=== PATIENT | female | born 1955 | race Caucasian/White ===

== ENCOUNTER → 2016-09-13 | Outpatient (CLI) | payer OTHER | LOC: FIMAGING 14:55 | PROVIDERS: ATTEND Internal Medicine | DX: Z12.31 Encounter for screening mammogram for malignant neoplasm of breast (principal); Z80.3 Family history of malignant neoplasm of breast | CPT/HCPCS: G0202 ==

== ENCOUNTER → 2016-09-24 | Outpatient (CLI) | payer OTHER | LOC: FIMAGING 14:53 | PROVIDERS: ATTEND Internal Medicine | DX: R92.0 Mammographic microcalcification found on diagnostic imaging of breast (principal) | CPT/HCPCS: G0206 ==

== ENCOUNTER 2016-09-27 09:19 | Day surgery (SDC) | payer OTHER ==
[2016-09-27] MEDS ORDERED: LR 1,000 ML IV ONE (09:56)
[2016-09-27] MEDS ORDERED: LIDOCAINE 1% 2 ML INJ ID PRN (09:56)
--- NOTE | 2016-09-27 10:07 | PDGENHP ---
History & Physical Chief Complaint: colon cancer screening History of Present Illness: colon screen Pertinent Past, Social, Family History: reviewed Relevant Physical Exam: nad Cardiorespiratory Assessment: RRR,ctab
--- NOTE | 2016-09-27 10:31 | PDANEPAE ---
ANE History of Present Illness screening ANE Past Medical History - Cardiovascular History Hx Hypertension: No Hx Arrhythmias: No Hx Chest Pain: No Hx Coronary Artery / Peripheral Vascular Disease: No Hx CHF / Valvular Disease: No Hx Palpitations: No - Pulmonary History Hx COPD: No Hx Asthma/Reactive Airway Disease: No Hx Recent Upper Respiratory Infection: No Hx Oxygen in Use at Home: No Hx Sleep Apnea: Yes - Neurologic History Hx Cerebrovascular Accident: No Hx Seizures: No Hx Dementia: No - Endocrine History Hx Diabetes: No - Renal History Hx Renal Disorders: No - Liver History Hx Hepatic Disorders: No - Cancer History Hx Cancer: No - Surgical History Prior Surgeries: C3-4 injection. Breast biopsy. lumpectomy ANE Review of Systems Review of systems is: negative - Exercise capacity Exercise capacity: >=4 METS ANE Patient History - Allergies Allergies/Adverse Reactions: terbutaline Allergy (Severe, Verified 09/27/16 10:13) Anaphylaxis adhesives Allergy (Mild, Uncoded 03/26/12 11:30) skin breakdown - Home Medications Home Medications: Claritin 09/27/16 [Last Taken 09/26/16 20:00] Herbals/Supplements -Info Only 09/27/16 [Last Taken 09/25/16 20:00] - NPO status NPO Status: no food or drink >8 hours NPO Since - Liquids (Date): 09/27/16 NPO Since - Liquids (Time): 08:15 NPO Since - Solids (Date): 09/26/16 NPO Since - Solids (Time): 09:00 - Anes Hx Anes Hx: post operative nausea - Smoking Hx Smoking Status: Never smoked - Alcohol Use Alcohol Use: Rarely - Family Anes Hx Family Anes Hx: none Family Hx Anesthesia Complications: mother gets very nauseaus ANE Labs/Vital Signs - Vital Signs Blood Pressure: 111/74 Heart Rate: 71 Respiratory Rate: 16 O2 Sat (%): 95 Height: 167.64 cm Weight: 74.843 kg ANE Physical Exam - Airway Neck exam: FROM Mallampati Score: Class 2 Mouth exam: normal dental/mouth exam - Pulmonary Pulmonary: no respiratory distress - Cardiovascular Cardiovascular: regular rate and rhythym - ASA Status ASA Status: II ANE Anesthesia Plan Anesthesia Plan: GA with mask
[2016-09-27] MEDS ORDERED: LIDOCAINE 2% 5 ML SDV ONE (10:32)
[2016-09-27] MEDS ORDERED: PROPOFOL/EMULSION 500 MG/50 ML BOTTLE IV ONE (10:32)
[2016-09-27] MEDS ORDERED: ALBUTEROL 3 ML DEYVIAL IH PRN (10:46)
[2016-09-27] MEDS ORDERED: NALOXONE HCL 0.4 MG/ML INJ IVP PRN (10:46)
[2016-09-27] MEDS ORDERED: ONDANSETRON 4 MG/2 ML VIAL IVP PRN (10:46)
[2016-09-27] MEDS ORDERED: ACETAMINOPHEN 500 MG TAB PO PRN (10:46)
[2016-09-27 11:22] VITALS: PULSE 73; TEMP 97.7
[2016-09-27] MEDS ORDERED: ACETAMINOPHEN 500 MG TAB ONE (11:33)
[2016-09-27 11:51] VITALS: RESP 14
[2016-09-27 12:03] VITALS: BP 135/71; O2SAT 100
--- NOTE | 2016-09-27 18:14 | GPN ---
[f rep st] PROCEDURE NOTE DATE OF PROCEDURE: 09/27/2016 PROCEDURE: Colonoscopy with polypectomy. INDICATION: Average risk colon cancer screening. CONSENT: Informed consent was obtained from the patient after an explanation of risks, benefits, an d alternatives to the procedure. MEDICATIONS GIVEN: Per Anesthesia. DESCRIPTION OF EXAM: After adequate sedation was achieved, the colonoscope was advanced through the anal orifice and as far as the cecum under direct vision. The views were good. Prep quality was g ood. Patient tolerance was good. Photographs were taken of the appendiceal orifice, cecum, ileocec al valve, and retroflexed view in the rectum. COMPLICATIONS: None. ESTIMATED BLOOD LOSS: None. FINDINGS: 1. Normal-appearing colonic mucosa throughout, and normal-appearing ileal mucosa protruding through the ileocecal valve. 2. A 2 mm midtransverse colon polyp was removed with cold biopsy forceps and retrieved. 3. A 6 mm flat distal transverse colon polyp was removed in 1 piece with cold snare and pulled into the scope. It was not retrieved in the trap and probably broke up. 4. Rare scattered sigmoid diverticulosis. 5. Medium internal hemorrhoids. IMPRESSION: Two polyps removed, although 1 was not retrieved. RECOMMENDATIONS: 1. Tentatively recommend repeat colonoscopy in 5 years for finding of 2 polyps, 1 of which was not retrieved. Will await pathology results to determine if this interval needs to be changed. 2. Resume regular medications. 3. Resume regular diet. 4. Discharge home. /[id number]/MODL
== END 2016-09-27 12:15 | disposition home or self-care (01) ==
LOC: FSGY 09:19
PROVIDERS: ATTEND Internal Medicine
PROC: 0DBE8ZX Excision of Large Intestine, Via Natural or Artificial Opening Endoscopic, Diagnostic (ICD-10-PCS; principal; 2016-09-27 10:45)
DX: Z12.11 Encounter for screening for malignant neoplasm of colon (principal); D12.3 Benign neoplasm of transverse colon; K57.30 Diverticulosis of large intestine without perforation or abscess without bleeding; K64.8 Other hemorrhoids
CPT/HCPCS: J2704

== ENCOUNTER → 2017-08-15 | Outpatient (CLI) | payer OTHER | LOC: FIMAGING 14:10 | PROVIDERS: ATTEND Internal Medicine | DX: N63.11 Unspecified lump in the right breast, upper outer quadrant (principal) ==

== ENCOUNTER → 2017-10-02 | Outpatient (CLI) | payer OTHER ==
[~2017-10-02] MED LIST: GADOBUTROL 10 ML VIAL IVP ONE
== END ==
LOC: FIMAGING 09:14
PROVIDERS: ATTEND Surgery
DX: C50.411 Malignant neoplasm of upper-outer quadrant of right female breast (principal)
CPT/HCPCS: 0159T; 77059; A9585; C8908

== ENCOUNTER → 2017-10-17 | Outpatient (CLI) | payer OTHER | LOC: FIMAGING 13:42 | PROVIDERS: ATTEND Surgery | DX: N63.11 Unspecified lump in the right breast, upper outer quadrant (principal); C50.411 Malignant neoplasm of upper-outer quadrant of right female breast ==

== ENCOUNTER 2017-11-01 10:26 | Day surgery (SDC) | payer OTHER ==
--- NOTE | 2017-10-30 10:00 | GHP ---
DATE OF ADMISSION: 11/01/2017 HISTORY OF PRESENT ILLNESS: The patient is a 62-year-old female who was recently found to have a right breast lump that was subsequently biopsied. Her pathology revealed an ER/MA positive, Gume grade 2, invasive ductal carcinoma, and HER2 positive. She does have a family history of pancreatic and prostate cancer. On ultrasound, the lesion is just under 2 cm, but there are surrounding findings on MRI that suggest that the lump could be up to 4.5 cm in size. In addition, 2 more lesions have been identified in the left breast on MRI. When she was in our office 1 month ago, we discussed surgical options. One option would be lumpectomy with radiation. The 2nd option would be bilateral mastectomies. After discussing with her oncologist, Dr. Ilda Santana, the patient has chosen to move forward with chemotherapy 1st and will undergo bilateral mastectomies at some point in the future. PAST MEDICAL HISTORY: Endometriosis, fatigue, fibrocystic disease of the breast , hyperlipidemia, infertility, Meniere disease, vertigo. PAST SURGICAL HISTORY: Appendectomy, breast biopsy, , lumpectomies of both breasts, neck surgery. MEDICATION LIST: Diazepam 5 mg oral tablet as needed. ALLERGIES: No known allergies. FAMILY HISTORY: Coronary artery disease, breast cancer, pancreatic cancer, hypertension, emphysema, myocardial infarction. SOCIAL HISTORY: The patient is a nonsmoker, occasionally uses alcohol and is with 2 children. REVIEW OF SYSTEMS: Ten-point review of systems was performed and is negative, aside from what is in the HPI. PHYSICAL EXAMINATION: GENERAL: Pleasant, well-nourished, well-groomed woman. HEENT: Normocephalic, atraumatic. No gross hearing deficit. Mucous membranes moist. HEENT: Eyes: Pupils are equal and round. No scleral icterus. CARDIAC : Regular rate and rhythm, no lower extremity edema. LUNGS: Clear to auscultation bilaterally. No increased work of breathing. BREASTS: Exam performed in the upright and supine position. Palpable right breast mass. No cervical, supraclavicular, or axillary lymphadenopathy. MUSCULOSKELETAL: Moves all extremities equally. SKIN: Warm and dry, no rashes. PSYCHIATRIC: Appropriate mood and affect. IMPRESSION AND PLAN: This is a 62-year-old female with newly diagnosed grade II invasive ductal carcinoma of the right breast, who was found to have 2 additional lesions in the contralateral breast on MRI. She, along with her oncologist, has chosen to pursue chemotherapy prior to surgery. She will undergo surgery to have a port placed. In the future, she will undergo bilateral mastectomies. We have discussed all risks and options of surgery. Risks include but are not limited to infection, bleeding, pneumothorax, heart attack, and . Patient understands and wishes to proceed with port placement. /[id number]/MODL MTDD
[2017-11-01] MEDS ORDERED: ceFAZolin 2 GM/DEXTROSE 100 ML IV ONE (10:46)
[2017-11-01] MEDS ORDERED: LR 1,000 ML IV ONE (10:50)
[2017-11-01] MEDS ORDERED: ONDANSETRON 4 MG/2 ML VIAL IVP PRN (12:28)
[2017-11-01] MEDS ORDERED: ALBUTEROL 3 ML DEYVIAL IH PRN (12:28)
[2017-11-01] MEDS ORDERED: fentaNYL 100 MCG/2 ML INJ IVP PRN (12:28)
[2017-11-01] MEDS ORDERED: DEXAMETHASONE 4 MG/ML VIAL IVP PRN (12:28)
[2017-11-01] MEDS ORDERED: ACETAMINOPHEN 500 MG TAB PO PRN (12:28)
[2017-11-01] MEDS ORDERED: NALOXONE HCL 0.4 MG/ML INJ IVP PRN (12:28)
[2017-11-01] MEDS ORDERED: MIDAZOLAM 2 MG/2 ML VIAL IVP ONE (12:29)
--- NOTE | 2017-11-01 12:31 | PDANEPAE ---
ANE History of Present Illness Venous Port ANE Past Medical History - Cardiovascular History Hx Hypertension: No Hx Arrhythmias: No Hx Chest Pain: No Hx Coronary Artery / Peripheral Vascular Disease: No Hx CHF / Valvular Disease: No Hx Palpitations: No - Pulmonary History Hx COPD: No Hx Asthma/Reactive Airway Disease: No Hx Recent Upper Respiratory Infection: No Hx Oxygen in Use at Home: No Hx Sleep Apnea: Yes Sleep Apnea Screening Result - Last Documented: Positive Pulmonary History Comment: HITESH positive - wears Cpap - Neurologic History Hx Cerebrovascular Accident: No Hx Seizures: No Hx Dementia: No - Endocrine History Hx Diabetes: No - Renal History Hx Renal Disorders: No - Liver History Hx Hepatic Disorders: No - Neurological & Psychiatric Hx Hx Neurological and Psychiatric Disorders: No - Cancer History Hx Cancer: Yes Cancer History Comment: right breast cancer - Congenital Disorder History Hx Congenital Disorders: No - GI History Hx Gastrointestinal Disorders: No - Other Health History Other Health History: right foot fracture - wearing a boot. meniere's disease. wears glasses - Chronic Pain History Chronic Pain: No - Surgical History Prior Surgeries: colonoscopy 09/2016. C3-4 injection. Breast biopsy. lumpectomy x2. appy. endometriosis surgery ANE Review of Systems Review of Systems: - Exercise capacity METS (RN): 4 METS ANE Patient History - Allergies Allergies/Adverse Reactions: terbutaline Allergy (Verified 10/31/17 10:48) Anaphylaxis adhesives Allergy (Uncoded 10/31/17 10:48) Rash - Home Medications Home Medications: Claritin 09/27/16 [Last Taken 10/30/17] Herbals/Supplements -Info Only 09/27/16 [Last Taken 10/30/17] DIAZEPAM PRN 10/31/17 [Last Taken 3 Months Ago ~08/01/17] - NPO status NPO Since - Liquids (Date): 11/01/17 NPO Since - Liquids (Time): 09:00 NPO Since - Solids (Date): 10/31/17 NPO Since - Solids (Time): 21:30 - Smoking Hx Smoking Status: Never smoked - Family Anes Hx Family Hx Anesthesia Complications: mother gets very nauseaus ANE Labs/Vital Signs - Vital Signs Blood Pressure: 116/68 Heart Rate: 62 Respiratory Rate: 18 O2 Sat (%): 97 Height: 170.18 cm Weight: 71.668 kg ANE Physical Exam - Airway Neck exam: FROM Mallampati Score: Class 2 Mouth exam: normal dental/mouth exam - Pulmonary Pulmonary: clear to auscultation - Cardiovascular Cardiovascular: regular rate and rhythym - ASA Status ASA Status: II ANE Anesthesia Plan Anesthesia Plan: GA with mask
[2017-11-01] MEDS ORDERED: BUPIVACAINE 0.5% 30 ML SDV ONE (12:45)
[2017-11-01] MEDS ORDERED: PROPOFOL/EMULSION 500 MG/50 ML BOTTLE IV ONE (12:50)
[2017-11-01] MEDS ORDERED: LIDOCAINE 1% 300 MG/30 ML SDV ONE (12:52)
[2017-11-01] MEDS ORDERED: NA BICARBONATE 50 MEQ/50 ML VIAL ONE (12:52)
[2017-11-01] MEDS ORDERED: LIDOCAINE 2% 2 ML INJ ONE ×2 (12:53→12:54)
[2017-11-01] MEDS ORDERED: fentaNYL 100 MCG/2 ML INJ ONE ×2 (12:58→15:58)
--- NOTE | 2017-11-01 13:03 | PDHPUP ---
History & Physical Update H&P update statement: This history and physical update is based on an assessment of the patient which was completed after admission or registration (within 24 hours), but prior to the surgery/procedure. H&P update: H&P reviewed & patient examined, no change in patient's condition since H&P completed
[2017-11-01] MEDS ORDERED: DEXAMETHASONE 4 MG/ML VIAL ONE (13:23)
[2017-11-01] MEDS ORDERED: ONDANSETRON 4 MG/2 ML VIAL ONE (13:23)
[2017-11-01] MEDS ORDERED: BACITRACIN ZINC 14.2 GM OINTTUBE TP ONE (13:36)
--- NOTE | 2017-11-01 13:52 | POSTANESTH ---
Post Anesthetic Evaluation Cardiovascular Status: Normal, Stable Respiratory Status: Normal, Stable Level of Consciousness/Mental Status: Can Participate in Eval, Alert and Oriented Pain Control: Adequate, Prn Tx Ordered Nausea/Vomiting Control: Adequate, Prn Tx Ordered Complications Possibly Related to Anesthesia: None Noted
[2017-11-01] MEDS ORDERED: ACETAMINOPHEN 500 MG TAB ONE (13:57)
--- NOTE | 2017-11-01 16:59 | POSTOPPROG ---
Post Op Note Date of Operation: 11/01/17 Surgeon: Brian España Anesthesiologist: CALVIN Anesthesia: IV Sedation Pre-op Diagnosis: BREAST CANCER Post-op Diagnosis: SAME Indication: CHEMO ACCESS Procedure: LEFT SUBCLAVIAN PORT WITH FLOURO Findings: GOOD POSITION AND FLOW Inf/Abcess present in the surg proc area at time of surgery?: No Depth: Deep Incisional (Fascial) EBL: Minimal Complications: 0
[2017-11-01 17:10] VITALS: BP 127/72
--- NOTE | 2017-11-03 15:57 | GOP ---
DATE OF OPERATION: SURGEON: Brian España MD PREOPERATIVE DIAGNOSIS: Breast cancer. POSTOPERATIVE DIAGNOSIS: Breast cancer. PROCEDURE PERFORMED: Left subclavian port placement with fluoroscopic guidance. FINDINGS: The patient was found to have good flow and good position of the catheter. DESCRIPTION OF PROCEDURE: The patient was taken to the operating room where she received IV sedation and monitored anesthesia care by Dr. Henderson. She was placed in the supine position, and prepped a nd draped in the usual sterile fashion. She was then placed in Trendelenburg. Using 1% Xylocaine lo dorinda infiltration, a single stick was made in the left subclavian vein. Guidewire was introduced. Po sition was confirmed with fluoroscopy. A subcu pocket was made in the 2nd intercostal space. At mana t point, the patient had been marked preoperatively for the positioning. Port tubing was passed from that pocket to the subclavian insertion site, trimmed to the appropriate length using fluoroscopic gu idance, and introduced through the introducer sheath and dilator system. Port was secured to the fas oliva with 3-0 Vicryl. Pocket was closed with 3-0 Vicryl for the subcu and a 4-0 Prolene subcuticular stitch for the skin. The entrance site was closed with Prolene mattress suture. All wounds were inf iltrated with 0.5% Marcaine. She tolerated the procedure well. She was taken to the recovery room i n good condition. There were no complications. /[id number]/MODL
== END 2017-11-01 17:16 | disposition home or self-care (01) ==
LOC: FSGY 10:26
PROVIDERS: ATTEND Surgery
PROC: 0JH60XZ Insertion of Tunneled Vascular Access Device into Chest Subcutaneous Tissue and Fascia, Open Approach (ICD-10-PCS; principal; 2017-11-01 12:00)
PROC: 02HV33Z Insertion of Infusion Device into Superior Vena Cava, Percutaneous Approach (ICD-10-PCS; principal; 2017-11-01 12:00)
PROC: B5181ZA Fluoroscopy of Superior Vena Cava using Low Osmolar Contrast, Guidance (ICD-10-PCS; principal; 2017-11-01 12:00)
DX: C50.211 Malignant neoplasm of upper-inner quadrant of right female breast (principal); Z17.0 Estrogen receptor positive status [ER+]; H81.09 Meniere's disease, unspecified ear; Z80.3 Family history of malignant neoplasm of breast
CPT/HCPCS: C1788; J0690; J1100; J1642; J2250; J2405; J2704; J3010

== ENCOUNTER 2017-11-02 00:58 | Emergency (ER) | payer OTHER ==
--- NOTE | 2017-11-02 01:44 | EDPHY ---
H & P Stated Complaint: port placed today- pain Time Seen by Provider: 11/02/17 01:08 HPI/ROS: HPI The patient presents with left-sided chest pain which has been present since earlier in the day today. She had a left-sided subclavian port placed for breast cancer by Dr. España. She did have a small apical pneumothorax and she was kept in the postoperative area for repeat chest x-ray. Repeat chest x-ray was unremarkable so she was discharged home. When she went home she continued to have left-sided pain which is pleuritic and sharp. REVIEW OF SYSTEMS 10 systems were reviewed and negative with the exception of the elements mentioned in the history of present illness. PMHx: Breast cancer Soc Hx: Here with her PHYSICAL General Appearance: Alert, no distress Eyes: Pupils equal and round no pallor or injection ENT, Mouth: Mucous membranes moist Respiratory: There are no retractions, lungs are clear to auscultation Cardiovascular: Regular rate and rhythm Gastrointestinal: Abdomen is soft and non-tender, no masses, bowel sounds normal Neurological: A&O, moves all extremities Skin: Warm and dry, no rashes Musculoskeletal: Neck is supple non tender Extremities: symmetrical, full range of motion Psychiatric: Patient is oriented X 3, there is no agitation Source: Patient Exam Limitations: No limitations - Personal History Current Tetanus Diphtheria and Acellular Pertussis (TDAP): Yes - Medical/Surgical History Hx Asthma: No Hx Chronic Respiratory Disease: No Hx Diabetes: No Hx Cardiac Disease: No Hx Renal Disease: No Hx Cirrhosis: No Hx Alcoholism: No Hx HIV/AIDS: No Hx Splenectomy or Spleen Trauma: No Other PMH: vertigo, breast CA - Social History Smoking Status: Never smoked Constitutional: Initial Vital Signs Temperature (C) 37 C 11/02/17 01:01 Heart Rate 76 11/02/17 01:01 Respiratory Rate 20 11/02/17 01:01 Blood Pressure 112/61 11/02/17 01:01 O2 Sat (%) 96 11/02/17 01:01 O2 Delivery Mode Room Air Allergies/Adverse Reactions: terbutaline Allergy (Verified 11/02/17 01:00) Anaphylaxis adhesives Allergy (Uncoded 11/02/17 01:00) Rash Home Medications: Medication Instructions Recorded Claritin 09/27/16 Herbals/Supplements -Info Only 09/27/16 DIAZEPAM PRN 10/31/17 Medical Decision Making - Diagnostics Imaging Results: Chest x-ray two view demonstrates small left-sided apical pneumothorax, unchanged from x-ray earlier today. This is interpreted by me and radiology interpretation is pending. Imaging: I viewed and interpreted images myself Differential Diagnosis: This is a 62-year-old female that had a left-sided subclavian catheter placed today by Dr. España. She had a small apical pneumothorax associated with this procedure. She has had 2 chest x-rays that show a stable pneumothorax. While at home today she felt chest pain which was pleuritic and was concerned so comes in for evaluation. Here, her vital signs are normal, she is breathing comfortably, her oxygen saturation is normal. Repeat chest x-ray was performed which demonstrates stable small apical pneumothorax. I do not think any intervention is needed at this time. I have encouraged her to take medication for her pain which could be related to the pneumothorax or simply postoperative discomfort. I will give her a short course of Matteson to try. Differential diagnosis includes pneumothorax, pleural effusion, pneumonia, surgical site infection. - Data Points Medications Given: Discontinued Medications Hydrocodone Bitart/Acetaminophen (Matteson 5/325mg Prepack#6) 1 btl TAKEHOME EDNOW ONE Stop: 11/02/17 02:16 Last Admin: 11/02/17 02:17 Dose: 1 btl Departure - Departure Disposition: Home, Routine, Self-Care Clinical Impression: Pneumothorax on left Condition: Good Instructions: Hydrocodone/Acetaminophen (By mouth), Traumatic Pneumothorax (ED) Additional Instructions: I recommend that you take Matteson 1/2 tab to 1 tab every 6 hr as needed for pain. You can take ibuprofen 400 mg every 6 hr for pain. Your pain should gradually improve, however if your worse in any way you should return to the emergency department. Your chest x-ray today showed that the pneumothorax while still present is quite small and has not grown in size. Referrals: Fina Singh MD [Primary Care Provider] - As per Instructions Brian España MD [Medical Doctor] - As per Instructions
[2017-11-02] MEDS ORDERED: HYDROCOD/APAP 5/325 PREPACK#6 BTL TAKEHOME ONE (02:15)
[2017-11-02 02:24] VITALS: BP 133/65
== END 2017-11-02 02:17 | disposition home or self-care (01) ==
DX: J95.811 Postprocedural pneumothorax (principal); C50.919 Malignant neoplasm of unspecified site of unspecified female breast

== ENCOUNTER 2018-03-28 08:03 | Inpatient (IN) | payer OTHER ==
[2018-03-28] MEDS ORDERED: ceFAZolin 2 GM/DEXTROSE 100 ML IV ONE (08:13)
[2018-03-28] MEDS ORDERED: LR 1,000 ML IV ONE (08:14)
[2018-03-28] MEDS ORDERED: GENTAMICIN SULFATE 80 MG/2 ML VIAL ONE ×2 (09:06→13:13)
[2018-03-28] MEDS ORDERED: BACITRACIN 50,000 UNITS/10 ML SYR IRR ONE ×2 (09:06→13:13)
[2018-03-28] MEDS ORDERED: BACITRACIN ZINC 0.5 OZ OINTTUBE TP ONE (09:06)
[2018-03-28] MEDS ORDERED: ceFAZolin 1 GM/5 ML SYR ONE ×2 (09:06→13:13)
[2018-03-28] MEDS ORDERED: THROMBIN (BOVINE) 20,000 UNIT SPRAY TP ONE (09:07)
[2018-03-28] MEDS ORDERED: METHYLENE BLUE 0.5% 50 MG/10 ML AMP ONE (09:08)
--- NOTE | 2018-03-28 09:19 | PDANEPAE ---
ANE History of Present Illness 62 yo female with R breast cancer for B mastectomy and reconstruction. ANE Past Medical History - Cardiovascular History Hx Hypertension: No Hx Arrhythmias: No Hx Chest Pain: No Hx Coronary Artery / Peripheral Vascular Disease: No Hx CHF / Valvular Disease: No Hx Palpitations: No Cardiovascular History Comment: hypercholseterolemia - Pulmonary History Hx COPD: No Hx Asthma/Reactive Airway Disease: No Hx Recent Upper Respiratory Infection: No Hx Oxygen in Use at Home: No Hx Sleep Apnea: Yes Sleep Apnea Screening Result - Last Documented: Positive Pulmonary History Comment: HITESH positive - instructed pt to bring cpap to hospital - Neurologic History Hx Cerebrovascular Accident: No Hx Seizures: No Hx Dementia: No Neurologic History Comment: meniere's - Endocrine History Hx Diabetes: No Hypothyroid: No Hyperthyroid: No Obesity: no - Renal History Hx Renal Disorders: No - Liver History Hx Hepatic Disorders: No - Neurological & Psychiatric Hx Hx Neurological and Psychiatric Disorders: No - Cancer History Hx Cancer: Yes Cancer History Comment: right breast cancer - Congenital Disorder History Hx Congenital Disorders: No - GI History Hx Gastrointestinal Disorders: No - Other Health History Other Health History: wears glasses. retained one suture with port placement and she got an infection- treated with abx - Chronic Pain History Chronic Pain: No - Surgical History Prior Surgeries: 11/01/17 left port placement with España. 09/27/16 colonoscopy with Edenilson. C3-4 injection. Breast biopsy. lumpectomy x2. appy. endometriosis surgery ANE Review of Systems Review of Systems: - Exercise capacity METS (RN): 4 METS - Systems Constitutional: Reports: no symptoms Cardiac: Reports: no symptoms Neurological: Reports: no symptoms ANE Patient History - Allergies Allergies/Adverse Reactions: adhesive Allergy (Verified 03/20/18 17:09) Rash gluten Allergy (Verified 03/20/18 17:25) dietary preference Milk Containing Products [dairy] Allergy (Verified 03/20/18 17:25) dietary preference terbutaline Allergy (Verified 03/20/18 17:06) Anaphylaxis - Home Medications Home Medications: Claritin 09/27/16 [Last Taken 03/27/18] Herbals/Supplements -Info Only 09/27/16 [Last Taken 03/20/18] Herceptin 03/20/18 [Last Taken 03/12/18] Pertuzumab 03/20/18 [Last Taken 03/12/18] - NPO status NPO Since - Liquids (Date): 03/28/18 NPO Since - Liquids (Time): 06:30 (tea with honey) NPO Since - Solids (Date): 03/27/18 NPO Since - Solids (Time): 20:00 - Anes Hx Anes Hx: slow to awaken from anesthesia - Smoking Hx Smoking Status: Never smoked - Alcohol Use Alcohol Use: Occasionally (1/weel on average) - Family Anes Hx Family Anes Hx: neg - N/A Family Hx Anesthesia Complications: mother gets very nauseaus ANE Labs/Vital Signs - Vital Signs Blood Pressure: 146/65 Heart Rate: 71 Respiratory Rate: 16 O2 Sat (%): 95 Height: 170.18 cm Weight: 72.575 kg ANE Physical Exam - Airway Neck exam: FROM Mallampati Score: Class 2 - Pulmonary Pulmonary: clear to auscultation - Cardiovascular Cardiovascular: regular rate and rhythym - ASA Status ASA Status: III ANE Anesthesia Plan Anesthesia Plan: general endotracheal anesthesia Regional Anesthesia: single shot NB (PEC blocks), POPC/PSR
[2018-03-28] MEDS ORDERED: ROCURONIUM 100 MG/10 ML VIAL ONE (10:03)
[2018-03-28] MEDS ORDERED: LIDOCAINE 2% 5 ML SDV ONE (10:03)
[2018-03-28] MEDS ORDERED: LIDOCAINE 0.5% 50 ML SDV ONE (10:03)
[2018-03-28] MEDS ORDERED: DEXAMETHASONE 4 MG/ML VIAL ONE (10:03)
[2018-03-28] MEDS ORDERED: PROPOFOL/EMULSION 500 MG/50 ML BOTTLE IV ONE ×4 (10:04→14:10)
[2018-03-28] MEDS ORDERED: diphenhydrAMINE 25 MG CAP PO PRN (12:02)
--- NOTE | 2018-03-28 12:12 | POSTOPPROG ---
Post Op Note Date of Operation: 03/28/18 Surgeon: Charity Natarajan Anesthesiologist: romario Anesthesia: GET(General Endotracheal) Pre-op Diagnosis: R breast ca Post-op Diagnosis: same Indication: 62yo F w her2+ R breast ca, multifocal, completed chemo Procedure: B mastectomy with B SLN bx Findings: none unusual. nodes not sent for frozen Inf/Abcess present in the surg proc area at time of surgery?: No EBL: 50-100 Complications: none immediately postoperatively Drains: Markus Gtz Specimen(s): B breast B SLN
[2018-03-28] MEDS ORDERED: ROCURONIUM 50 MG/5 ML VIAL ONE (12:43)
[2018-03-28] MEDS ORDERED: PROPOFOL 200 MG/20 ML VIAL ONE ×2 (12:53→12:54)
[2018-03-28] MEDS ORDERED: ONDANSETRON 4 MG/2 ML VIAL ONE (14:01)
[2018-03-28] MEDS ORDERED: LR 500 ML IV PRN (14:41)
[2018-03-28] MEDS ORDERED: DIAZEPAM 5 MG/ML 1 ML SYR IVP PRN (14:41)
[2018-03-28] MEDS ORDERED: oxyCODONE IR 5 MG TAB PO PRN (14:41)
[2018-03-28] MEDS ORDERED: NALOXONE HCL 0.4 MG/ML INJ IVP PRN ×2 (14:41)
[2018-03-28] MEDS ORDERED: PROMETHAZINE HCL 25 MG/ML INJ IVP PRN (14:41)
[2018-03-28] MEDS ORDERED: ACETAMINOPHEN 500 MG TAB PO PRN (14:41)
--- NOTE | 2018-03-28 14:41 | POSTANESTH ---
Post Anesthetic Evaluation Cardiovascular Status: Normal, Stable, Tx Over/Under Hydration Respiratory Status: Normal, Stable Level of Consciousness/Mental Status: Can Participate in Eval Pain Control: Inadeq, Add Tx Required Nausea/Vomiting Control: Adequate, Prn Tx Ordered Complications Possibly Related to Anesthesia: None Noted
--- NOTE | 2018-03-28 15:14 | POSTOPPROG ---
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
--- NOTE | 2018-03-28 15:42 | GOP ---
[f rep st] OPERATIVE REPORT DATE OF OPERATION: 03/28/2018 SURGEON: Randolph Tom MD AIRPORT CLERK: Salinas Arias, certified composites technician. ANESTHESIA: General endotracheal. PREOPERATIVE DIAGNOSIS: Right breast cancer. POSTOPERATIVE DIAGNOSIS: Right breast cancer. PROCEDURE PERFORMED: Bilateral breast reconstruction with tissue silverlight developer and AlloDerm. FINDINGS: Bilateral skin sparing mastectomies. SPECIMENS: Right mastectomy skin. ESTIMATED BLOOD LOSS: 40 cc. INDICATIONS: Right breast cancer. DESCRIPTION OF PROCEDURE: The patient was met in my office previously where the risks and benefits w ere discussed with her at length which include, but not limited to, infection, bleeding, hematoma, se boy, poor cosmesis, asymmetries, mastectomy skin flap necrosis, thermal injuries, injuries to vessel s and/or nerves, and need for further revision surgery. She was agreeable to this and therefore sign ed the operative consent. INTRAVENOUS FLUIDS: 1150 cc. URINE OUTPUT: 130 cc. COMPLICATIONS: None. DRAINS: SOFIA x4. DESCRIPTION OF PROCEDURE: Prior to going to sleep in the operating room, a time-out was performed wh ere all in the room agreed upon the site and the procedure to be performed. She received 2 g of Ance f perioperatively prior to any incision being made. SCDs were placed for DVT prophylaxis, and a urin bennie catheter was placed for monitoring throughout the case. The bilateral mastectomy portion of the procedure will be dictated by my colleague, Dr. Charity Natarajan. We began our part of the procedure on t he patient's right side. Identical procedures were performed on each side. We identified the latera l border of the pectoralis major muscle and lifted this up off the chest wall to develop the subpecto ral pocket. This was taken superiorly and medially and then the pectoralis major muscle was taken of f the inferior border with electrocautery, and this all was taken care of the intercostal perforators with coagulation. We developed a smooth subpectoral pocket, and we measured the base width and this deemed to be 12 cm. We therefore picked 133 MX-12-T tissue silverlight developer. Prior to this we used a 12 x 20 piece of AlloDerm. This was a thick piece. This was contoured and sewed into the inframammary fo ld as well as the lateral chest wall. The pocket was then washed with copious amounts of saline and then triple antibiotic saline. We again examined the mastectomy flaps, and they deemed to be viable. We then in a closed sterile fashion took all, in a closed sterile way, all the air out of the tissu e silverlight developer which was then inserted in the subpectoral pocket, and it was sutured to the chest wall fo r correct orientation with 2-0 PDS along with the tabs. We then completed the subpectoral pocket by sewing the superior border of the AlloDerm to the inferior border of the pectoralis major muscle with a running 2-0 Vicryl. Two drains were placed, one along the IMF and one along the lateral axilla, a nd this was sutured to the skin with 2-0 Vicryl sutures. The same procedure was then performed on th e left side, again using a 133 MX-12-T silverlight developer and a 12 x 20 piece AlloDerm cut to contour. We then , in an open fashion with the new power port, instilled 200 cc of methylene blue infused sterile sali ne into each silverlight developer. We then tailor tacked the mastectomy skin and excised sharply with a 10 blade . The right mastectomy skin was sent off for specimen. She did have a thermal injury on the left si de on the mastectomy skin flaps. This was debrided and excised sharply with 15 blade and closed in a complex fashion with 3-0 Monocryl and 5-0 nylon. This measured approximately 5 cm upon final closur e. The mastectomy incisions were then also closed complexly with 3-0 Vicryl subcutaneous sutures, 3- 0 Monocryl subdermal sutures, and skin ignacio. She was then dressed with bacitracin, Xeroform, and fluff gauze. A surgical support bra was placed. The count was correct at the end of the case. Ther e were no immediate complications. She was awoken and taken to PACU in good condition. /[id number]/MODL
[2018-03-28] MEDS ORDERED: fentaNYL 100 MCG/2 ML INJ ONE (15:47)
[2018-03-28] MEDS: fentaNYL 100 MCG/2 ML INJ IVP PRN ×2 (15:48→16:00)
[2018-03-28] MEDS ORDERED: CEFAZOLIN 1 GM/DEXTROSE/50 ML BAG IV ONE (15:56)
[2018-03-28] MEDS ORDERED: oxyCODONE IR 5 MG TAB ONE (16:21)
[2018-03-28] MEDS ORDERED: ACETAMINOPHEN 500 MG TAB ONE (16:24)
[2018-03-28] MEDS: CYCLOBENZAPRINE 10 MG TAB PO SCH ×2 (17:20→21:37)
[2018-03-28] MEDS: oxyCODONE IR 5 MG TAB PO PRN ×2 (19:41→23:41)
[2018-03-29] MEDS: oxyCODONE IR 5 MG TAB PO PRN ×5 (04:27→21:14)
[2018-03-29] MEDS: CYCLOBENZAPRINE 10 MG TAB PO SCH (05:47)
[2018-03-29] MEDS: KETOROLAC 15 MG/1 ML SDV IVP SCH ×4 (09:23→23:59)
[2018-03-29] MEDS: DIAZEPAM 5 MG TAB PO PRN ×3 (09:24→21:14)
--- NOTE | 2018-03-29 10:45 | SOAPPROG ---
SOAP Progress Note Assessment/Plan: Assessment/Plan: 62 Y F s/p B mastectomy c reconstruction, POD#1. C/o pain. Adding toradol. Will stop flexeril and try valium PRN spasm. Wounds ok. Drains ok. Continue hospital stay until better pain control. D/c to home once achieved, possibly tomorrow. Seen with Dr. Aldana. S: c/o pain. hard to take a deep breath bc of incisional pain. some right shoulder spasm, pain. better with massage. O: alert, tearful mmm ctab rrr abd soft wounds cdi drains serosang 03/29/18 10:42 Objective: Vital Signs Temp Pulse Resp BP Pulse Ox 37.5 C 84 14 132/62 H 90 L 03/29/18 08:24 03/29/18 08:24 03/29/18 08:24 03/29/18 08:24 03/29/18 08:24 03/28/18 03/29/18 03/30/18 05:59 05:59 05:59 Intake Total 2300 Output Total 840 Balance 1460 ICD10 Worksheet Patient Problems: Problems Problem Status Onset Breast cancer Acute - ICD10 Problem Qualifiers (1) Breast cancer
--- NOTE | 2018-03-29 13:49 | ASMTCMCOM ---
CM Note CM Note Notes: Pt admitted for schedule for bilateral mastectomy and reconstruction. Pt lives at home with and is otherwise independent. No therapies ordered, anticipate she will dc home w/support of when medically stable. CM available for any changes. DC Plan: Independent Date Signed: 03/29/2018 01:48 PM Electronically Signed By:Anh Rogers RN
--- NOTE | 2018-03-29 13:49 | GOP ---
[f rep st] OPERATIVE REPORT DATE OF OPERATION: 03/28/2018 SURGEON: Charity Natarajan MD ANESTHESIA: Dorothy Romo M.D. PREOPERATIVE DIAGNOSIS: Right breast upper outer breast cancer. POSTOPERATIVE DIAGNOSIS: Right breast upper outer breast cancer. PROCEDURE PERFORMED: Bilateral mastectomy, bilateral sentinel lymph node FINDINGS: No unusual findings. SPECIMENS: Left breast short superior, long lateral. Left sentinel lymph node. Right breast short superior, long lateral, left sentinel lymph node. I found an intramammary lymph node on the left side, which was sent separately. ESTIMATED BLOOD LOSS: 50 cc. INDICATIONS: Delmy Medeiros is a 62-year-old status post neoadjuvant chemotherapy. She presents for bilateral mastectomy. DESCRIPTION OF PROCEDURE: Patient was brought into the operating room, placed supine on the table. General anesthesia was administered. Her bilateral chest and axilla were prepped and draped in the usual sterile fashion. I started on the left side. I made an ellipse using markings that had been created by Dr. Tom. I created superior and inferior skin flaps. My dissection occurred to the clavicle, sternum, inframammary fold, and mid-axillary line. The breast tissue was removed from the pectoralis fascia. It was marked short superior and long lateral. I did see an intramammary lymph node which was excised. I then used the gamma probe to identify the sentinel lymph node in the left axilla. This was over 600 ex vivo and the background was under 60. Hemostasis was achieved. A damp lap was placed. I then moved to the right side and in a similar fashion, made an incision, created superior and inferior skin flaps and began. My dissection occurred to the clavicle, sternum, inframammary fold, mid- axillary line and the breast was removed from the pectoralis fascia. I used the gamma probe to identify the sentinel lymph node. In the right axilla, it measured over 1000 and the background was quiet. This was submitted to Pathology. I felt all the flaps and excised a bit more tissue where the flaps were thicker. Hemostasis was achieved. Dr. Tom was then able to complete his portion of the case. /[id number]/MODL MTDD
--- NOTE | 2018-03-29 15:38 | PDMN ---
Medical Necessity Medical necessity: Change to inpt as of 03/29/18 @ 15:26, meets inpt criteria per MD order and [facility] [id number] M[place], Complete, with Insertion of Breast Prosthesis or Tissue Clinic Business Manager. 62 y/o w/R breast cancer admitted for bilat mastectomy w/bilat SLN bx and bilat tissue pediatric nurse practitioner recon and post-op care. Upgraded to inpt for ongoing post-op pain management, pt w/severe pain this AM, adding IV Toradol. Est LOS>2MN for ongoing care for above.
[2018-03-30] MEDS: KETOROLAC 15 MG/1 ML SDV IVP SCH ×2 (05:31→12:02)
[2018-03-30] MEDS: oxyCODONE IR 5 MG TAB PO PRN ×2 (08:00→12:38)
[2018-03-30] MEDS ORDERED: ENOXAPARIN 40 MG/0.4 ML SYR SC SCH (09:00)
--- NOTE | 2018-03-30 09:24 | ASMTLACE ---
LACE Length of stay for Answers: Less than 1 day current admission Comorbidities - select Answers: Other Notes: Breast Ca all that apply # of Emergency department Answers: 1-2 visits in the last 6 months Score: 2 Date Signed: 03/30/2018 09:23 AM Electronically Signed By:Seda Duke RN
--- NOTE | 2018-03-30 09:26 | ASMTCMCOM ---
CM Note CM Note Notes: Patient medically cleared for discharge to home. No current needs identified CM available should needs arise. Plan: Dc to home with family support. Date Signed: 03/30/2018 09:25 AM Electronically Signed By:Seda Duke RN
[2018-03-30 12:01] VITALS: BP 136/59
== END 2018-03-30 15:43 | disposition home or self-care (01) | DRG 581 ==
LOC: F1N 08:03 → EEVIPCON 10:30 → F1N 16:45 → OBSVTOIN 03-29 15:26
PROVIDERS: ADMIT Surgery; ATTEND Surgery
PROC: 07B60ZX Excision of Left Axillary Lymphatic, Open Approach, Diagnostic (ICD-10-PCS; principal; 2018-03-29)
PROC: 0HTV0ZZ Resection of Bilateral Breast, Open Approach (ICD-10-PCS; principal; 2018-03-29)
PROC: 07B50ZX Excision of Right Axillary Lymphatic, Open Approach, Diagnostic (ICD-10-PCS; principal; 2018-03-29)
PROC: 0HHV0NZ Insertion of Tissue Expander into Bilateral Breast, Open Approach (ICD-10-PCS; 2018-03-29)
DX: C50.211 Malignant neoplasm of upper-inner quadrant of right female breast (principal); Z17.0 Estrogen receptor positive status [ER+]
CPT/HCPCS: 97116-GP; 97161-GP; 97165-GO; 97535-GO; A9520; G0378; J0690; J1100; J1580; J1885; J2405; J2704; J3010; Q4116; Q9968

== ENCOUNTER → 2018-04-29 | Outpatient (CLI) | payer OTHER | LOC: FIMAGING 09:03 | PROVIDERS: ATTEND Internal Medicine Hematology & Oncology | DX: Z13.820 Encounter for screening for osteoporosis (principal); M85.89 Other specified disorders of bone density and structure, multiple sites ==